=== PATIENT | male | born 1945 | race Caucasian/White ===

== ENCOUNTER → 2020-05-02 | Outpatient (CLI) | payer MEDICARE ==
[~2020-05-02] MED LIST: ASPIRIN E.C. 8181 MG PO; CARTIA XT120 MG PO; COREG12.5 MG PO; COUMADIN 5MG5 MG/TAB PO; FLOMAX 0.40.4 MG/CAP PO; INDERAL40 MG PO; INDERAL80 MG PO; K-TAB20 PO; LASIX 20MG TABL20 MG PO; LASIX 40MG TABL40 MG PO; LIPITOR20 MG PO; LORTAB PO; NORVASC 5MG5 MG/TAB PO; NORVASC2.5 MG PO; PRADAXA 150MG150 MG PO; PRADAXA150 MG PO; PRADAXA75 MG PO; PREDNISONE10 MG PO; PRINIVIL10 MG PO; PRINIVIL20 MG PO; TOPROL XL 50MG50 MG PO; UNABLE; ZESTRIL 10MG10 MG PO; ZESTRIL 5MG5 MG PO; [UNRECOGNIZED DRUG - OTHER]; [UNRECOGNIZED DRUG - REMARK]
== END ==
LOC: COL.RAD 13:47
DX: N43.3 Hydrocele, unspecified (principal)

== ENCOUNTER 2022-02-07 11:44 | Inpatient (IN) | payer MEDICARE ==
[~2022-02-07] VITALS: Ht 188 cm; Wt 92.0 kg
[~2022-02-07 11:44] MED LIST changes: -PRINIVIL20 MG PO; +PRINIVIL40 MG PO
[2022-02-07 12:14] LABS: BASO % 0.1 % (0.0-2.0); GRAN # 6.4 K/mm3 (1.4-6.5); GRAN % 85.4 % (42.2-75.2); HEMATOCRIT 43.3 % (42.0-52.0); HEMOGLOBIN 15.1 g/dl (13.5-18.0); LYMPH # 0.5 K/mm3 (1.2-3.4); LYMPH % 6.4 % (20.0-51.0); MEAN CELL VOLUME 94 fl (80.0-100.0); MEAN CORPUSCULAR HEMOGLOBIN 33 pg (27-31); MEAN CORPUSCULAR HGB CONC 35 g/dl (33.0-37.0); MEAN PLATELET VOLUME 10.8 fl (7.4-10.4); MONO # 0.5 K/mm3 (0.1-0.6); MONO % 7.2 % (1.7-9.3); PLATELET COUNT 191 K/mm3 (130-400); REDCELL DISTRIBUTION WIDTH-CV 14.2 % (11.5-14.5)
[2022-02-07 12:21] LABS: COLLECTION METHOD CLEAN CATCH
[2022-02-07 12:37] LABS: MUCOUS Present (NOT PRESENT); PH 5 (5-8); SQUAMOUS EPITHELIAL None Seen /hpf (0-10); URINE APPEARANCE Clear (CLEAR/HAZY); URINE BACTERIA None Seen /hpf (NONE SEEN); URINE BILIRUBIN Negative (NEGATIVE); URINE BLOOD 1+ (NEGATIVE); URINE COLOR Yellow (YELLOW); URINE GLUCOSE Negative (NEGATIVE); URINE KETONE Negative (NEGATIVE); URINE LEUKOCYTE ESTERASE Negative (NEGATIVE); URINE NITRATE Negative (NEGATIVE); URINE PROTEIN(semi-quant) 1+ (NEGATIVE); URINE RBC 0-2 /hpf (0-2); URINE UROBILINOGEN >=4.0 (NEGATIVE); URINE WBC 0-2 /hpf (0-2)
[2022-02-07 12:38] LABS: ALBUMIN 3.5 gm/dL (3.4-4.8); BILIRUBIN,TOTAL 3.1 mg/dL (0.2-1.2); CALCIUM 8.5 mg/dL (8.4-10.2); CREATININE, serum 1.1 mg/dL (0.72-1.25); POTASSIUM 3.3 mmol/L (3.5-4.5); TOTAL PROTEIN 7.4 gm/dL (6.2-8.1)
[2022-02-07 12:44] LABS: TROPONIN-I 0.089 ng/mL (0.00-0.033)
[2022-02-07] MEDS ORDERED: ASPIRIN E.C. 8181 MG PO (12:51)
[2022-02-07] MEDS ORDERED: NORVASC 10MG10 MG PO (12:51)
[2022-02-07] MEDS ORDERED: PROSCAR 5MG5 MG PO (12:52)
[2022-02-07] MEDS ORDERED: SENNA-S 50 MG-81 TAB PO (12:54)
[2022-02-07] MEDS ORDERED: FLOMAX 0.40.4 MG/CAP PO (12:54)
[2022-02-07 17:45] VITALS: BP 135/92; PULSE 63; TEMP 98
--- NOTE | 2022-02-07 17:50 | NUR ---
THE PATIENT ARRIVED TO THE FLOOR VIA ED STRETCHER. ADMISSION COMPLETED. The patient has denied any pain at this time. No chest pain, denies SOB at this time. He does ask "Will it take long to get this water off me?" Ordered patient's dinner, no other concerns. Report given to shift foreman, rn.
[2022-02-07 19:38] VITALS: BP 138/97; PULSE 75; TEMP 97.5
[2022-02-07 23:29] VITALS: BP 112/68; PULSE 75; TEMP 97.2
[2022-02-08 03:09] LABS: BASO % 0.2 % (0.0-2.0); EOS % 0.2 % (0.0-4.0); GRAN % 81.1 % (42.2-75.2); HEMATOCRIT 40.3 % (42.0-52.0); HEMOGLOBIN 13.8 g/dl (13.5-18.0); LYMPH # 0.6 K/mm3 (1.2-3.4); MEAN CELL VOLUME 95 fl (80.0-100.0); MEAN CORPUSCULAR HEMOGLOBIN 33 pg (27-31); MEAN CORPUSCULAR HGB CONC 34 g/dl (33.0-37.0); MEAN PLATELET VOLUME 11.1 fl (7.4-10.4); MONO # 0.6 K/mm3 (0.1-0.6); PLATELET COUNT 174 K/mm3 (130-400); RED BLOOD COUNT 4.24 M/mm3 (4.20-5.60); REDCELL DISTRIBUTION WIDTH-CV 14.3 % (11.5-14.5)
[2022-02-08 03:14] VITALS: BP 115/61; PULSE 65; TEMP 97.6
--- NOTE | 2022-02-08 06:38 | NUR ---
Heparin gtt started @ 2030 @18.5 cc/hr after bolus dose given in RFA peripheral site. pt remains on 2L O2, no longer reporting SOA after IV lasix given and good urine output. pt up to side of bed to use urinal with SBA. 6 hr HepXa within goal, no changes made, next level due at 0830.
[2022-02-08 07:38] VITALS: BP 127/80; PULSE 78; TEMP 97.7
--- NOTE | 2022-02-08 08:00 | NUR ---
Patient A&Ox4. VSS 1.5 L NC O2 with intermittent coughing, reports left side chest pain r/t coughing. IV CDI, fluids infusing. Independent with the urinal. Droplet precautions in place. Call light within reach
[2022-02-08 09:35] LABS: ALBUMIN 2.9 gm/dL (3.4-4.8); BILIRUBIN,TOTAL 2.5 mg/dL (0.2-1.2); CALCIUM 7.9 mg/dL (8.4-10.2); CREATININE, serum 0.97 mg/dL (0.72-1.25); POTASSIUM 3.2 mmol/L (3.5-4.5); TOTAL PROTEIN 6.4 gm/dL (6.2-8.1)
[2022-02-08 11:03] VITALS: BP 107/67; PULSE 60; TEMP 97.1
[2022-02-08 13:19] LABS: INR 1.4 (0.8-3.0); PROTHROMBIN TIME 16.4 SECONDS (9.7-12.8)
--- NOTE | 2022-02-08 13:56 | NUR ---
SW met with patient to complete intake. Patient states that he lives in [facility] alone and the next of kin is his son Brody [phone]. Patient provides that he does not utilize DME, and that he gets around his home just fine. PCP is Dr. Mercado, and pharmacy is [facility]. Patient states that his plan is to return to his [place] and has no concerns at this time with doing so. DC plan: home
--- NOTE | 2022-02-08 15:08 | NUR ---
WHILE ATTEMPTING TO OBTAIN CONSENT FOR HEART CATH, PT STATES THAT THE PROCEDURE WAS NOT REALLY EXPLAINED TO HIM. CONSENT NOT OBTAINED @ THIS TIME. PT IS RESTING IN BED, STATES THAT HE HAS NOT REALLY SLEPT, DENIES NEEDS. RESPIRATIONS UNLABORED. IV HEPARIN INFUSING. CALL LIGHT WITHIN REACH.
[2022-02-08 15:36] VITALS: BP 119/83; PULSE 62; TEMP 97.1
[2022-02-08 21:13] VITALS: BP 133/84; PULSE 114; TEMP 97.5
[2022-02-08 23:44] VITALS: BP 123/78; PULSE 63; TEMP 97.8
[2022-02-09 04:07] VITALS: BP 114/67; PULSE 78; TEMP 97.9
--- NOTE | 2022-02-09 05:43 | NUR ---
RESTED THROUGH THE NIGHT WITHOUT INCIDENT. HAS BEEN NPO SINCE MIDNIGHT FOR HEART CATH.
--- NOTE | 2022-02-09 05:59 | NUR ---
PT IS TEARFUL THIS AM SAYING HE WAS UP ALOT OVER NIGHT VOIDING AND UNSURE IF HE CAN MAKE IT THROUGH THE HEART CATH, WHEN ASKING WHAT HIS CONCERN WAS STATED HES TIRED AND TO WEAK. TOOK AM ASA W SIP OF WATER AND WILL PASS ON CONCERN.
[2022-02-09 06:09] LABS: BASO % 0.2 % (0.0-2.0); EOS % 0.4 % (0.0-4.0); GRAN # 4.6 K/mm3 (1.4-6.5); GRAN % 80.7 % (42.2-75.2); HEMATOCRIT 37.9 % (42.0-52.0); HEMOGLOBIN 12.9 g/dl (13.5-18.0); LYMPH # 0.5 K/mm3 (1.2-3.4); LYMPH % 8.5 % (20.0-51.0); MEAN CELL VOLUME 95 fl (80.0-100.0); MEAN CORPUSCULAR HEMOGLOBIN 32 pg (27-31); MEAN CORPUSCULAR HGB CONC 34 g/dl (33.0-37.0); MEAN PLATELET VOLUME 11.5 fl (7.4-10.4); MONO # 0.6 K/mm3 (0.1-0.6); MONO % 9.7 % (1.7-9.3); PLATELET COUNT 189 K/mm3 (130-400); REDCELL DISTRIBUTION WIDTH-CV 14.1 % (11.5-14.5)
[2022-02-09 06:25] LABS: CALCIUM 7.9 mg/dL (8.4-10.2); CREATININE, serum 0.99 mg/dL (0.72-1.25); POTASSIUM 3.2 mmol/L (3.5-4.5)
[2022-02-09 07:35] VITALS: BP 119/81; PULSE 66; TEMP 97.5
--- NOTE | 2022-02-09 08:47 | NUR ---
Pt assessment complete. Pt is sitting up on the side of the bed upon entry, he is A/O x4. His breathing is even and unlabored on 2L O2 via NC. Pt reports orthopnea, questioning why he feels this way. Discussed diagnosis to best of ability with patient. Pt awaiting cardiology to discuss procedure with him prior to signing consent. Discussed POC with him. Heparin drip infusing without issues. Call light within reach.
[2022-02-09 12:06] VITALS: BP 115/64; PULSE 76; TEMP 97.3
[2022-02-09 16:01] VITALS: BP 138/92; PULSE 88; TEMP 97.4
--- NOTE | 2022-02-09 18:45 | NUR ---
Pt unable to tolerate laying flat for heart cath, pt became very anxious and tachypneic when outside laborer came to transfer patient. Plan to move catheterization until Wednesday. Pt updated and in agreeance. Heparin drip infusing per protocol. Lasix administered, pt refusing external cath to assist in sleeping. NO needs at this time. Call light within reach.
[2022-02-09 20:04] VITALS: BP 103/72; PULSE 73; TEMP 98.1
--- NOTE | 2022-02-09 21:59 | NUR ---
AAO PATIENT CONTINUES ON HEPARIN DRIP WITH PENDING HEART CATH WEDNESDAY. REPLACED POTASSIUM TODAY AND COMPLETED LASIX PROVIDED THIS EVENING. PATIENT CONTINUES WITH [id number]. CONTINUE WITH DAILY WEIGHTS. EDUCATED PATIENT ON BREATHING EXERCISES AND ENCOURAGED TO GET OUT OF BED FOR MEALS. REMAINS ON DROPLET PRECAUTIONS FOR INFLUENZA A. CALL LIGHT WIHTIN REACH WILL CONTINUE TO MOINTOR.
[2022-02-09 23:06] VITALS: BP 120/62; PULSE 74; TEMP 98.2
[2022-02-10] VITALS (8 sets, daily range): BP systolic 99–128; BP diastolic 55–88; PULSE 51–91; TEMP 97.5–98
[2022-02-10 02:16] LABS: CALCIUM 8.1 mg/dL (8.4-10.2); CREATININE, serum 1.15 mg/dL (0.72-1.25); MAGNESIUM 1.9 mg/dL (1.6-2.6); POTASSIUM 3.8 mmol/L (3.5-4.5)
--- NOTE | 2022-02-10 03:10 | NUR ---
PATIENT SITTING ON THE SIDE OF THE BED STATING HE FEELING LIKE HE IS SO TENSE AND FEELS LIKE HE IS GOING TO EXPLODE CHARGE NURSE STATED THAT HE HAD AN EPISODE LIKE THIS LAST NIGHT AND WAS PRESCRIBED ATIVAN. PROVIDED ONE TIME DOSE RECENTLY DIRECTED. PATIENT REMAINS NPO AT THIS TIME. WILL CONTINUE TO MONITOR. PATIENT DENIES ANY CHEST TIGHTNESS OR PAIN, PATIENT DENIES ANY SHORNTESS OF BREATH AT THIS TIME.
--- NOTE | 2022-02-10 05:38 | NUR ---
PATIENT HAD EPISODE ON EARLY THIS MORNING FELT TENSE AND FELT LIKE HE WAS GOING TO EXPLODE, PROVIDED ONE TIME DOSE OF ATIVAN PATIENT WAS ABLE TO SLEEP THE REST OF THE MORNING NO FURTHER COMPLAINTS NOTED WILL CONTINUE TO MONITOR PATIENT REMAINS NPO.
[2022-02-10 06:06] LABS: BASO % 0.2 % (0.0-2.0); EOS % 0.8 % (0.0-4.0); GRAN # 3.6 K/mm3 (1.4-6.5); GRAN % 75.9 % (42.2-75.2); HEMOGLOBIN 12.4 g/dl (13.5-18.0); LYMPH # 0.6 K/mm3 (1.2-3.4); LYMPH % 12.5 % (20.0-51.0); MEAN CELL VOLUME 97 fl (80.0-100.0); MEAN CORPUSCULAR HEMOGLOBIN 33 pg (27-31); MEAN CORPUSCULAR HGB CONC 34 g/dl (33.0-37.0); MEAN PLATELET VOLUME 11.3 fl (7.4-10.4); MONO # 0.5 K/mm3 (0.1-0.6); PLATELET COUNT 190 K/mm3 (130-400); RED BLOOD COUNT 3.76 M/mm3 (4.20-5.60); REDCELL DISTRIBUTION WIDTH-CV 14.2 % (11.5-14.5)
[2022-02-10 06:11] LABS: HEMATOCRIT 36.6 % (42.0-52.0)
[2022-02-10 06:20] LABS: CALCIUM 7.9 mg/dL (8.4-10.2); CREATININE, serum 1.03 mg/dL (0.72-1.25); POTASSIUM 3.6 mmol/L (3.5-4.5)
--- NOTE | 2022-02-10 09:49 | NUR ---
PT ALERT AND ORIENTED X4. SITTING UP IN BED. BILATERAL PITTING EDEMA TO BOTH EXTREMITIES. POTASSIUM REPLACED THIS MORNING. HEPARIN DRIP RUNNING AT 19.5ML/HR. CONTINENT OF BOWEL AND BLADDER.
--- NOTE | 2022-02-10 09:56 | NUR ---
REVIEWED LOU HERN[facility]NDEZ CHARTING AND AGREE WITH ASSESSMENTS.
--- NOTE | 2022-02-10 11:09 | NUR ---
PT REFUSING O2 PER THERAPY REPORT.
--- NOTE | 2022-02-10 15:36 | NUR ---
Salvage Cutter met with patient to review discharge plan. Patient states he still plans to return home at time of discharge. SW discussed home health services with patient, however he declines a need. SW attempted to contact patient's son, Brody and left a message.
--- NOTE | 2022-02-10 21:57 | NUR ---
PATIENT PENDING HEART CATH IN AM NPO AT MIDNIGHT REMAIS ON DROPLET PRECAUTINS FOR FLU A. CONTINUING WITH HEPARIN DRIP DIRECTED. REMAINS ON TELE AND FR 1500. NO PAIN NOTED AT THIS TIME PATIENT DOES GET SOA ON EXERTION ABLE TO RECOVER WITH REST. WILL CONTINUE TO MOINTOR FOR ANY CHANGES.
[2022-02-11] VITALS (10 sets, daily range): BP systolic 106–137; BP diastolic 53–98; PULSE 54–92; TEMP 97.2–98.3
--- NOTE | 2022-02-11 05:38 | NUR ---
AAO PATIENT SLEPT THROUGHOUT THE WHOLE NIGHT NO COMPLAIN OF PAIN NOTED. PATIENT HAS REMAINED NPO DUE TO SCHEDULED HEART CATH. CONTINUES WITH HEPARIN DRIPP NO S/S OF BLEEDING NOTED. TELE IN PLACE I WILL CONTINUE TO MONITOR FOR ANY CHANGES.
[2022-02-11 08:51] LABS: BASO % 0.2 % (0.0-2.0); EOS % 0.8 % (0.0-4.0); GRAN % 77.9 % (42.2-75.2); HEMATOCRIT 37.5 % (42.0-52.0); LYMPH # 0.6 K/mm3 (1.2-3.4); MEAN CELL VOLUME 95 fl (80.0-100.0); MEAN CORPUSCULAR HEMOGLOBIN 33 pg (27-31); MEAN CORPUSCULAR HGB CONC 35 g/dl (33.0-37.0); MEAN PLATELET VOLUME 10.7 fl (7.4-10.4); MONO # 0.5 K/mm3 (0.1-0.6); MONO % 8.7 % (1.7-9.3); PLATELET COUNT 226 K/mm3 (130-400); RED BLOOD COUNT 3.97 M/mm3 (4.20-5.60); REDCELL DISTRIBUTION WIDTH-CV 14.1 % (11.5-14.5)
[2022-02-11 09:08] LABS: CALCIUM 8.4 mg/dL (8.4-10.2); CREATININE, serum 1.13 mg/dL (0.72-1.25); MAGNESIUM 1.9 mg/dL (1.6-2.6); POTASSIUM 3.5 mmol/L (3.5-4.5)
--- NOTE | 2022-02-11 15:25 | NUR ---
CRITICAL HIGH HEP XA COMMUNICATED TO THIS NURSE FROM LAB. HEPARIN DRIP PAUSED AT THIS TIME. STAT REDRAW ORDERED. LAST DRAW WAS DONE IN THE AC OF THE EXTREMITY THAT HEPARIN DRIP WAS GOING IN VIA IV ACCESS TO THE HAND. NEEDS TO BE REDRAWN FROM OPPOSITE EXTREMITY OF DRIP.
--- NOTE | 2022-02-11 16:18 | NUR ---
See merge for all medication, assessment, intervention, and vital sign times.
--- NOTE | 2022-02-11 20:52 | NUR ---
11ML REMAINING TO R RADIAL COMPRESSION BAND NO HEMATOMA NOTED WILL CONTINUE TO MONITOR
--- NOTE | 2022-02-11 23:16 | NUR ---
9ML REMAINING IN COMPRESSION BAND NO S/S OF HEMATOMA NOTED WILL CONTINUE TO MONITOR.
[2022-02-12 00:04] VITALS: BP 127/74; PULSE 94; TEMP 98.3
[2022-02-12 00:24] VITALS: BP 127/74; PULSE 94; TEMP 98.3
--- NOTE | 2022-02-12 02:39 | NUR ---
COMPRESSION BAND COMPLETELY DEFLATED NO HEMATOMA NOTED PATIENT HAS ADEQUTE CAP REFILLS 2SEC, 02SAT 97% CIRCULATION ADEQUATE TO ALL DIGITS BLANCHING. RADIAL PULSE +[address] TO REDUCE MOVEMENT THROUGHOUT THE NIGHT WILL CONTINUE TO MONITOR SITE.
[2022-02-12 04:59] VITALS: BP 108/53; PULSE 69; TEMP 97.8
[2022-02-12 05:05] VITALS: BP 108/53; PULSE 69; TEMP 97.8
--- NOTE | 2022-02-12 05:06 | NUR ---
NO HEMATOMA NOTED PULSE +2 RUE RADIAL NO BLEEDING NOTED, CIRCULATION ADEQUATE. WILL CONTINUE TO MONITOR FOR ANY CHANGES.
[2022-02-12 06:19] LABS: BASO % 0.4 % (0.0-2.0); EOS # 0.1 K/mm3 (0.0-0.7); EOS % 1.6 % (0.0-4.0); GRAN # 3.8 K/mm3 (1.4-6.5); HEMATOCRIT 38.6 % (42.0-52.0); HEMOGLOBIN 13.3 g/dl (13.5-18.0); LYMPH # 0.5 K/mm3 (1.2-3.4); MEAN CELL VOLUME 94 fl (80.0-100.0); MEAN CORPUSCULAR HEMOGLOBIN 33 pg (27-31); MEAN CORPUSCULAR HGB CONC 35 g/dl (33.0-37.0); MEAN PLATELET VOLUME 10.9 fl (7.4-10.4); MONO # 0.5 K/mm3 (0.1-0.6); MONO % 9.8 % (1.7-9.3); PLATELET COUNT 240 K/mm3 (130-400); RED BLOOD COUNT 4.09 M/mm3 (4.20-5.60); REDCELL DISTRIBUTION WIDTH-CV 14.2 % (11.5-14.5)
[2022-02-12 06:22] LABS: CALCIUM 8.5 mg/dL (8.4-10.2); CREATININE, serum 1.33 mg/dL (0.72-1.25); POTASSIUM 3.9 mmol/L (3.5-4.5)
[2022-02-12 07:58] VITALS: BP 115/65; PULSE 81; TEMP 97.4
--- NOTE | 2022-02-12 08:50 | NUR ---
PT PLEASANT, AOX4, DENIES PAIN, REPORTS SOB AT REST, HAS PRODUCTIVE COUGH, OXYGEN REMOVED AND PT 97% ON RA, PT ASSESSMENT PERFORMED, MEDICATIONS GIVEN, PT EAGER FOR DISCHARGE, NO OTHER NEEDS
[2022-02-12] MEDS ORDERED: BRILINTA90 MG PO (10:02)
[2022-02-12] MEDS ORDERED: COREG 6.256.25 MG/TA PO (10:03)
--- NOTE | 2022-02-12 10:43 | NUR ---
Blue Leather Sorter met with patient who will discharge home today. Patient states one of his sons will be here to pick him up. SW presented and reviewed IM form with patient. When ELIAS asked patient if he understood his rights patient stated "I don't really care". Patient provided signature on form. SW placed form on chart and provided copy to patient. Discharge plan: Home
--- NOTE | 2022-02-12 11:03 | NUR ---
DISCHARGE EDUCATION PROVIDED, PT CONFUSED WITH MEDICATION CHANGES, EDUCATED ON THEM AGAIN, PT THEN VERBALIZED UNDERSTANDING. PT CALLING RIDE FOR DISCHARGE. WILL WAIT TO REMOVE IV. NO OTHER NEEDS
[2022-02-12 11:47] VITALS: BP 105/61
--- NOTE | 2022-02-12 12:40 | NUR ---
PT ESCORTED OUT VIA WHEELCHAIR, IV REMOVED, NO OTHER NEEDS
== END 2022-02-12 12:40 | disposition home or self-care (01) | DRG 248 ==
LOC: COL.ER 11:44 → MEDICAL 15:58
PROVIDERS: Emergency Medicine; Internal Medicine Cardiovascular Disease; Physician Assistant; Student in an Organized Health Care Education/Training Program; ADMIT Family Medicine
PROC: 02703DZ Dilation of Coronary Artery, One Artery with Intraluminal Device, Percutaneous Approach (ICD-10-PCS; principal; 2022-02-11)
PROC: 02703ZZ Dilation of Coronary Artery, One Artery, Percutaneous Approach (ICD-10-PCS; 2022-02-11)
PROC: 4A023N7 Measurement of Cardiac Sampling and Pressure, Left Heart, Percutaneous Approach (ICD-10-PCS; 2022-02-11)
PROC: B2111ZZ Fluoroscopy of Multiple Coronary Arteries using Low Osmolar Contrast (ICD-10-PCS; 2022-02-11)
DX: I11.0 Hypertensive heart disease with heart failure (principal); I50.23 Acute on chronic systolic (congestive) heart failure; J96.01 Acute respiratory failure with hypoxia; I21.4 Non-ST elevation (NSTEMI) myocardial infarction; I48.20 Chronic atrial fibrillation, unspecified; I47.1 Supraventricular tachycardia; I27.20 Pulmonary hypertension, unspecified; I42.9 Cardiomyopathy, unspecified; E87.6 Hypokalemia; N40.0 Benign prostatic hyperplasia without lower urinary tract symptoms; E78.5 Hyperlipidemia, unspecified; J10.1 Influenza due to other identified influenza virus with other respiratory manifestations; T50.2X5A Adverse effect of carbonic-anhydrase inhibitors, benzothiadiazides and other diuretics, initial encounter; I44.7 Left bundle-branch block, unspecified; I08.1 Rheumatic disorders of both mitral and tricuspid valves; I25.10 Atherosclerotic heart disease of native coronary artery without angina pectoris; Z20.822 Contact with and (suspected) exposure to COVID-19; Z86.718 Personal history of other venous thrombosis and embolism; Z86.711 Personal history of pulmonary embolism; Z79.82 Long term (current) use of aspirin
CPT/HCPCS: 99222-AI; 99232-AI; 99233-AI; 99239; C1725; C1769; C1876; C1887; J0583; J1644; J1940; J2060; J2250; J3010; J3480

== ENCOUNTER 2024-04-05 20:58 | Emergency (ER) | payer MEDICARE ==
[~2024-04-05] VITALS: Ht 188 cm; Wt 95.5 kg
[~2024-04-05 20:58] MED LIST changes: +ALDACTONE 25MG25 M1 PO; +APRESOLINE 25MG25 MG PO; +BRILINTA90 MG PO; +CEPHALEXIN500 M1 PO; +COREG 6.256.25 MG/TA PO; +DEMADEX 20MG20 M1 PO; +DOXYCYCLINE 10100 MG PO; +IMDUR 30MG30 MG/TAB PO; +NORVASC 10MG10 MG PO; +PLAVIX 75MG TAB75 MG PO; +PROSCAR 5MG5 MG PO; +SENNA-S 50 MG-81 TAB PO
[2024-04-05 21:47] LABS: COLLECTION METHOD CATHETER
[2024-04-05 21:59] LABS: BASO # 0.1 K/mm3 (0.0-0.2); BASO % 1.1 % (0.0-2.0); EOS # 0.2 K/mm3 (0.0-0.7); GRAN % 69.9 % (42.2-75.2); HEMATOCRIT 37.9 % (42.0-52.0); HEMOGLOBIN 12.7 g/dl (13.5-18.0); LYMPH # 0.8 K/mm3 (1.2-3.4); LYMPH % 14.2 % (20.0-51.0); MEAN CELL VOLUME 99 fl (80.0-100.0); MEAN CORPUSCULAR HEMOGLOBIN 33 pg (27-31); MEAN CORPUSCULAR HGB CONC 34 g/dl (33.0-37.0); MEAN PLATELET VOLUME 10.8 fl (7.4-10.4); MONO # 0.6 K/mm3 (0.1-0.6); MONO % 10.4 % (1.7-9.3); PLATELET COUNT 115 K/mm3 (130-400); RED BLOOD COUNT 3.82 M/mm3 (4.20-5.60)
[2024-04-05 22:10] LABS: ALBUMIN 3.9 g/dL (3.4-4.8); BILIRUBIN,TOTAL 1.2 mg/dL (0.2-1.2); CALCIUM 9.6 mg/dL (8.4-10.2); CREATININE, serum 2.84 mg/dL (0.72-1.25); POTASSIUM 4.4 mEq/L (3.5-4.5)
[2024-04-05 22:28] LABS: URINE APPEARANCE TURBID (CLEAR/HAZY); URINE BLOOD 2+ (NEGATIVE); URINE COLOR RED (YELLOW); URINE GLUCOSE NEGATIVE (NEGATIVE); URINE KETONE NEGATIVE (NEGATIVE); URINE NITRATE POSITIVE (NEGATIVE); URINE PROTEIN(semi-quant) 2+ (NEGATIVE); URINE UROBILINOGEN 0.2 E.U/dL (0.2-1.0)
[2024-04-05] MEDS ORDERED: cefTRIAXone 1 G in Water For Injection,Sterile 20 ML IV ONE (23:45)
[2024-04-06] MEDS ORDERED: OMNICEF 300MG300 MG PO (01:00)
[2024-04-06 01:18] VITALS: BP 128/82; PULSE 71; TEMP 98.2
== END 2024-04-06 01:18 | disposition home or self-care (01) ==
LOC: COL.ER 20:58
PROVIDERS: Internal Medicine
DX: N30.01 Acute cystitis with hematuria (principal); I71.40 Abdominal aortic aneurysm, without rupture, unspecified; I12.9 Hypertensive chronic kidney disease with stage 1 through stage 4 chronic kidney disease, or unspecified chronic kidney disease; N18.32 Chronic kidney disease, stage 3b
CPT/HCPCS: J0696

== ENCOUNTER 2024-04-11 07:47 | Emergency (ER) | payer MEDICARE ==
[~2024-04-11] VITALS: Ht 188 cm; Wt 95.5 kg
[~2024-04-11 07:47] MED LIST changes: +OMNICEF 300MG300 MG PO
[2024-04-11 07:54] VITALS: BP 103/67; TEMP 97.8
[2024-04-11 09:34] VITALS: PULSE 75
[2024-04-11 09:50] LABS: COLLECTION METHOD CATHETER
[2024-04-11 10:02] LABS: PH 6.5 (5.0-8.5); URINE APPEARANCE CLEAR (CLEAR/HAZY); URINE BLOOD 3+ (NEGATIVE); URINE COLOR ORANGE (YELLOW); URINE GLUCOSE NEGATIVE (NEGATIVE); URINE KETONE NEGATIVE (NEGATIVE); URINE NITRATE NEGATIVE (NEGATIVE); URINE PROTEIN(semi-quant) 1+ (NEGATIVE); URINE UROBILINOGEN 0.2 E.U/dL (0.2-1.0)
== END 2024-04-11 09:44 | disposition home or self-care (01) ==
LOC: COL.ER 07:47
PROVIDERS: Family Medicine
DX: R33.9 Retention of urine, unspecified (principal)